=== PATIENT | female | born 1955 | race Caucasian/White ===

== ENCOUNTER 2017-06-10 16:13 | Inpatient (IN) | payer OTHER, MEDICAID ==
[~2017-06-10] VITALS: Ht 154.9 cm; Wt 49.0 kg
[2017-06-10] MEDS ORDERED: QUET300T2 PO (16:29)
--- NOTE | 2017-06-10 16:30 | NUR ---
park guard at bedside for 1:1 observation for saftey and high elopement risk.
--- NOTE | 2017-06-10 17:59 | NUR ---
Pt resting in gurney in room 5a with security police at bedside for 1:1 observation for safety. Xray results still pending.
--- NOTE | 2017-06-10 18:27 | NUR ---
Per Dr. Reaves pt is medically clear and may be trans to [facility]HU.
[2017-06-10 18:30] VITALS: BP 131/64
--- NOTE | 2017-06-10 18:31 | NUR ---
Pt trans to [facility]HU, NAD noted.
--- NOTE | 2017-06-10 18:50 | NUR ---
1835 Admit patient from ER per w/c, placed on 5150 for gravely disabled. Patient having an erratic bizarre behavior, confused , disoriented , mumbling ,making bizarre movement and statement that " CARLIE poison client." V/s taken,stable . Report given to Eliosa. HUNT who will admit the patient.
[2017-06-11 07:30] VITALS: BP 127/75
[2017-06-11 15:34] VITALS: BP 134/56
[2017-06-11 20:26] VITALS: BP 130/81
--- NOTE | 2017-06-12 06:26 | NUR ---
GPS: REMAIN CALM AND COOPERATIVE WITH STAFF.SLEPT 9 HRS THROUGH THE NIGHT.CONTINUE PLAN OF CARE. NO AGITATION NOTED.
[2017-06-12 07:30] VITALS: BP 127/70
[2017-06-12 07:52] LABS: BILIRUBIN,TOTAL 0.5 mg/dL (0.2-1.0); CREATININE 0.7 mg/dL (0.6-1.3); MAGNESIUM 2.1 mg/dL (1.8-2.4); POTASSIUM 3.9 mmol/L (3.5-5.1); TOTAL PROTEIN, SERUM 6.9 g/dL (6.4-8.2)
[2017-06-12 07:59] LABS: THYROID STIMULATING HORMONE 1.458 mIU/mL (0.358-3.740)
[2017-06-12 08:17] LABS: HEMATOCRIT 44.5 % (37-47); HEMOGLOBIN 14.5 G/DL (12.0-16.0); MEAN CORPUSCULAR HEMOGLOBIN 27.7 UUG (27.0-31.0); MEAN CORPUSCULAR HGB CONC 33 g/dL (32.0-37.0); MEAN CORPUSCULAR VOLUME 84.8 FL (81.0-99.0); PLATELET COUNT (AUTO) 277 K/UL (150-450); RED BLOOD CELL COUNT(AUTO) 5.25 MIL/UL (4.2-5.4); WHITE BLOOD COUNT (AUTO) 5.4 K/UL (4.0-11.2)
[2017-06-12 08:18] LABS: EOSINOPHILS % (AUTO) 4.2 % (0.0-7.0); LYMPHOCYTES % (AUTO) 33.6 % (20.5-51.5); MONOCYTES % (AUTO) 11.9 % (0.0-11.0); NEUTROPHILS % (AUTO) 49.8 % (38.5-71.5)
--- NOTE | 2017-06-12 10:45 | NUR ---
UR Note: ARGENTINA faxed H&P and medications to Underwriting Consultant Masha and Elizabeth at [facility] [fax: [phone]; phone: [phone]]. Awaiting authorization number.
[2017-06-12 17:06] VITALS: BP 112/60
[2017-06-12 20:08] VITALS: BP 109/60
[2017-06-13 08:04] VITALS: BP 118/70
--- NOTE | 2017-06-13 08:35 | NUR ---
UR Note: ARGENTINA faxed pt's daily clinicals to wrapper caser Masha arango [facility] [fax: [phone]; phone: [phone]]. Awaiting authorization number.
--- NOTE | 2017-06-13 15:39 | NUR ---
Patient currently lives with her son. Per hold, [place] is [address] [place] [address]. Patient's family member Domingo [[phone]] refused to provide SW with pt's current address. Domingo stated patient cannot go back there and that we need to provide her "fci" care. Domingo also refused to provide contact information for patient's son. Due to patient's mental status, she is unable to provide information regarding her living arrangement. ARGENTINA will follow up with MD, patient, and patient's family to form appropriate discharge plans. ARGENTINA will form a safe and proper discharge. Addendum: 06/13/17 at 1543 by AYANNA ELAINE ARGENTINA was alerted that pt has a substance abuse history. ARGENTINA will follow up with pt and provide a brief substance abuse intervention.
[2017-06-13 16:37] VITALS: BP 109/67
--- NOTE | 2017-06-13 19:30 | NUR ---
RECEIVED PATIENT LAYING COMFORTABLY IN BED. NO ACUTE DISTRESS NOTED. A&O X 2. FORGETFUL. SKIN INTACT. PATIENT IS CALM AND COOPERATIVE. BRP. SAFETY INITIATED. WILL CONTINUE TO MONITOR.
[2017-06-13 20:28] VITALS: BP 118/75
--- NOTE | 2017-06-14 06:33 | NUR ---
PATIENT SLEPT 8 HOURS IN MY SHIFT. NO ACUTE DISTRESS NOTED. PATIENT REMAINS COOPERATIVE. TOOK ALL MEDS ORDERED. SAFETY AND COMFORT MEASURES MAINTAINED T/O SHIFT. ALL NEEDS MET.
[2017-06-14 07:30] VITALS: BP 139/77
--- NOTE | 2017-06-14 10:10 | NUR ---
UR Note: ARGENTINA faxed pt's daily clinicals to disease case manager Masha arango [facility] [fax: [phone]; phone: [phone]]. Awaiting authorization number.
--- NOTE | 2017-06-14 12:30 | NUR ---
PATIENT IS SEATED IN THE DINNING ROOM WITH HER FAMILY MEMBERS VISITING ABLE TO AMBULATE WITH THE FRONT WHEEL WALKER FIGITY AT TIMES SAFE AND THERAPEUTIC ENVIRONMENT PROVIDED AT ALL TIMES
--- NOTE | 2017-06-14 13:04 | NUR ---
Discharge Planning Note: ARGENTINA spoke with corrections caseworker Sophie at [facility] [fax: [phone]; phone: [phone]] regarding after care treatment for pt. Dr. Sweeney recommended intensive outpatient for the pt. ARGENTINA relayed this request to Sophie.
[2017-06-14 16:00] VITALS: BP 126/71
--- NOTE | 2017-06-14 17:57 | NUR ---
COMPLIANT WITH MEDICATIONS AND CARE APPETITE HAS BEEN GOOD WILL CONTINUE TO OBSERVE AND PROVIDE SAFE THERAPEUTIC ENVIRONMENT AT ALL TIMES
[2017-06-14 18:55] VITALS: BP 141/63
--- NOTE | 2017-06-14 18:55 | NUR ---
FOUND PATIENT ON THE BATHROOM FLOOR SHE APPARENTLY GOT HERSELF OUT OF BED AND FELL HIT THE LEFT SIDE OF HER HEAD WITH BUMP AND SOME BRUISING PATIENT ASSISTED INTO BED ABLE TO WALK LOOKS LETHARGIC BUT ABLE TO ANSWER QUESTIONS PLACED INTO THE RADHA CHAIR ICE APPLIED TO HER HEAD VITALS CHECKED AND DOCUMENTED CALLED THE [facility] SPOKE WITH NICK LIEUTENANT/DEPUTY WITH ORDERS CALLED PATIENTS FAMILY SPOKE WITH [place] AND HE STATED THAT HE IS THE PATIENTS UNCLE INFORMED HIM OF THE FALL WILL CONTINUE TO OBSERVE.
[2017-06-14 20:38] VITALS: BP 137/82
--- NOTE | 2017-06-14 20:52 | NUR ---
Pt fell during shift change pt found on the floor. Dr. Sweeney was called and notified ordered a 1:1 sitter for safety. HS Medications held per doctor's order. When questioning the pt she is unable to verbalize how she fell, she makes gestures that she fell with her hands. Pt hit her head, CT scan ordered. CT scan came back negative. Carton Counter Feeder notified, Rudolph, due to 1:1 sitter.
--- NOTE | 2017-06-14 23:00 | NUR ---
Pt Left eye is swollen, closed shut, bruised, red and purple in color. Pt verbalized pain, " It hurts". Tylenol 650mg given, ice continued. Picture was taken of the eye documented and placed in chart.
[2017-06-15 07:30] VITALS: BP 132/76
--- NOTE | 2017-06-15 08:35 | NUR ---
UR Note: ARGENTINA faxed pt's daily clinicals to block and case maker Masha arango [facility] [fax: [phone]; phone: [phone]]. Awaiting authorization number.
--- NOTE | 2017-06-15 10:00 | NUR ---
RECEIVED PATIENT AWAKE ALERT MORE VERBAL AND EXPLAINING HOW SHE FELL.LEFT EYE SWELLING AND BRUISES EVIDENT ICE CONTINUE TO BE APPLIED PATIENT HAS ONE ON ONE SITTER FOR OBSERVATION AND SAFETY.COMPLIANT WITH MEDICATIONS AND CARE WILL CONTINUE TO OBSERVE.
--- NOTE | 2017-06-15 10:56 | NUR ---
ARGENTINA faxed pt's nursing notes to bottle caser Masha arango [facility] [fax: [phone]; phone: [phone]] per her request.
--- NOTE | 2017-06-15 14:06 | NUR ---
DR BUITRAGO HERE TO SEE PATIENT AND AWARE THAT PATIENT FELL AND HE REVIEWED PATIENTS MEDICATIONS WITH ADJUSTMENTS.
[2017-06-15 15:00] VITALS: BP 107/58
--- NOTE | 2017-06-15 18:00 | NUR ---
FED SELF DINNER AWAKE ALERT LEFT EYE BRUISING AND SWELLING VERY EVIDENT WITH THE EYE LID CLOSED SHOT WITH THE RIGHT EYE OPEN COLD COMPRESS APPLIED.PATIENT DENIES PAIN OR DISCOMFORTS PATIENT HAS ONE ON ONE SITTER FOR SAFETY WILL CONTINUE TO OBSERVE.
[2017-06-15 20:34] VITALS: BP 132/82
[2017-06-16 07:30] VITALS: BP 138/60
--- NOTE | 2017-06-16 10:52 | NUR ---
UR Note: ARGENTINA faxed pt's daily clinicals to binder caser Masha arango [facility] [ / Fx: [phone]]. Awaiting authorization number.
--- NOTE | 2017-06-16 11:12 | NUR ---
Global Logistics Analyst: -ARGENTINA filed an APS report on 06/15/2017 for suspected self neglect. -ARGENTINA met with APS Bel ELAINE [File #[id number]] [phone] and was provided with additional information. APS will continue to follow the case once pt is discharged home.
[2017-06-16 15:32] VITALS: BP 112/63
[2017-06-16 20:51] VITALS: BP 132/85
[2017-06-17 07:30] VITALS: BP 116/70
--- NOTE | 2017-06-17 07:39 | NUR ---
Lab called regarding pts Elevated Tegretol level 15.1. Asymptomatic at this time. Called and spoke to Dr. Sweeney. Ordered to hold dose until he comes assess the pt.
[2017-06-17 15:00] VITALS: BP 118/58
[2017-06-17 20:00] VITALS: BP 110/62
--- NOTE | 2017-06-17 21:45 | NUR ---
RECEIVED IN BED AOX2. OBSERVED TO BE RESTLESS. 1:1 SITTER WITH PT AT ALL TIMES. NO ACUTE DISTRESS NOTED. WILL CONTINUE TO MONITOR FOR SAFETY.
[2017-06-18 08:00] VITALS: BP 121/69
[2017-06-18 16:50] VITALS: BP 120/64
[2017-06-18 20:25] VITALS: BP 116/60
[2017-06-19 07:30] VITALS: BP 105/60
--- NOTE | 2017-06-19 10:00 | NUR ---
AWARE OF DISCHARGE PLANNING TODAY STATED THAT SHE IS HAPPY THAT SHE WILL BE LEAVING TO GO HOME.COMPLIANT WITH MEDICATIONS AND CARE.
--- NOTE | 2017-06-19 10:07 | NUR ---
DC Note: Patient will be discharged to her mother's home [[address] [place], [address]] via public transportation at 1:00 pm. Patient will be provided with a taxi voucher. Spoke with patient's mother, Mary [phone] who is aware and agreeable with discharge plans. Patient is aware and agreeable with discharge plans as well. Patient is alert and oriented x4, denies suicidal and homicidal ideations. Patient was referred to , , and [[address], [address], [place], [address]; [phone]] for psychiatric referrals. Patient was referred to Rosaura Pham (Therapist) [[address], [address]; [phone]] for outpatient mental health. Patient was instructed to contact Sophie with [email or web address] [facility] [phone] to provide authorization for referrals. Patient will follow-up with (Glove [facility]) [[address] [place] [address]; ]. Patient is encouraged to present at [facility] [[address] [place], [address], ;[phone]] at 9:00 am on 06/16/17 for intake screening. Patient was encouraged to attend a Narcotics Anonymous meeting [[id number] [facility] [address] [facility], [address]] on 06/20/17 at 7:[address] [facility] Fiber Optic Assembler, Bel Amaro [File #[id number]] [phone] and provided discharge plans.
--- NOTE | 2017-06-19 11:50 | NUR ---
PATIENT DISCHARGED TO HER MOTHERS HOME PICKED UP BY GUILLERMINA WITH DISCHARGE INSTRUCTIONS AND PRESCRIPTIONS AND ALL HER PERSONAL BELONGINGS INCLUDING HER HOME MEDICATIONS THAT SHE BROUGHT WITH HER ON ADMISSION AND SHE NEEDED TO CALL FOR A FOLLOW UP APPOINTMENT WITH HER HEALTH CARE MARKETING MANAGER AND PSYCHIATRIST WITHIN THE NEXT ONE TO TWO WEEKS AND SHE EXPRESSED UNDERSTANDING.
== END 2017-06-19 11:50 | disposition home or self-care (01) | DRG 885 ==
LOC: ER 16:13 → GPS 18:22
PROVIDERS: ADMIT Psychiatry & Neurology Psychiatry; ATTEND Internal Medicine
DX: F31.2 Bipolar disorder, current episode manic severe with psychotic features (principal); E88.09 Other disorders of plasma-protein metabolism, not elsewhere classified; F23 Brief psychotic disorder; Z91.19 Patient's noncompliance with other medical treatment and regimen; F17.210 Nicotine dependence, cigarettes, uncomplicated; Z79.899 Other long term (current) drug therapy; F41.9 Anxiety disorder, unspecified; Z90.710 Acquired absence of both cervix and uterus; M77.01 Medial epicondylitis, right elbow; M79.641 Pain in right hand
CPT/HCPCS: 36415; 70450; 71010; 73070; 73120; 83735; 84100; 84443; 85025; 90732; 93005; A4663